=== PATIENT | male | born 1970 | race Caucasian/White ===

== ENCOUNTER 2017-11-26 10:19 | Day surgery (SDC) | payer BC ==
[2017-11-25 08:56] VITALS: BMI 27.6
[~2017-11-26 10:19] MED LIST: LACTATED RINGERS 1,000 ML IV SCH; LIDOCAINE 1% 20 ML VIAL (10MG/ML) FOR IV START INTRADERMA PRN; MIDAZOLAM 2 MG/2 ML VIAL IV PRN
[2017-11-26 11:12] VITALS: TEMP 97.9
[2017-11-26] MEDS ORDERED: LIDOCAINE 1% INJ 10MG/ML (20 ML MDV) ONE (11:58)
[2017-11-26] MEDS ORDERED: PROPOFOL 10 MG/ML 20 ML VIAL IV ONE (11:58)
--- NOTE | 2017-11-26 12:19 | P.PCN ---
Date of Procedure: 11/26/17 Procedure(s) Performed: BRIEF HISTORY: Patient is a 47-year-old pleasant male, scheduled for an elective colonoscopy as a part of value should of intermittent rectal bleeding and prior history of colon polyps. He has strong family history of colon cancer diagnosed in his father and paternal aunt in the early 50s. As colonoscopy was in 2013 and was noted to have a tubular adenoma. PROCEDURE PERFORMED: Colonoscopy. PREOPERATIVE DIAGNOSIS: History of colon polyps/family history of colon Cancer/ intermittent rectal bleeding. IV sedation per Anesthesia. PROCEDURE: After informed consent was obtained, the patient, was brought into the endoscopy unit. IV sedation was administered by Anesthesia under continuous monitoring. Digital rectal examination was normal. Initially the Olympus CF- 160 flexible video colonoscope was then inserted in the rectum, gradually advanced into the cecum without any difficulty. Careful examination was performed as the scope was gradually being withdrawn. Ileocecal valve and the appendiceal orifice were visualized and appeared normal. Prep was excellent. Mucosa of the cecum, ascending colon, transverse colon, descending colon, sigmoid colon, and rectum appeared normal. Retroflexion was performed in the rectum and small internal hemorrhoids were seen. The patient tolerated the procedure well. IMPRESSION: Normal-appearing colon from rectum to cecum with no evidence of colorectal neoplasia. RECOMMENDATIONS: Findings of this examination were discussed with the patient well as his family. He was advised to have a repeat screening colonoscopy in 3 years from now because of the prior history of colon polyps and strong family history of colon cancer.
[2017-11-26 12:57] VITALS: BP 127/86; PULSE 56; RESP 16
== END 2017-11-26 13:09 | disposition home or self-care (01) ==
LOC: ORWHC2ENDO 10:19
PROVIDERS: ATTEND Internal Medicine Gastroenterology
DX: K62.5 Hemorrhage of anus and rectum (principal); K64.8 Other hemorrhoids; Z86.010 Personal history of colon polyps; Z80.0 Family history of malignant neoplasm of digestive organs; Z87.891 Personal history of nicotine dependence
CPT/HCPCS: 45378; J2001; J2704

== ENCOUNTER 2021-06-28 07:58 | Day surgery (SDC) | payer BC ==
[2021-06-25 14:33] VITALS: BMI 28.8
[2021-06-28 08:17] VITALS: RESP 16; TEMP 98
[2021-06-28] MEDS: LACTATED RINGERS 1,000 ML IV SCH ×2 (08:24→09:30)
[2021-06-28] MEDS ORDERED: LIDOCAINE 1% INJ 10MG/ML (20 ML MDV) ONE (09:35)
[2021-06-28] MEDS ORDERED: PROPOFOL 10 MG/ML 20 ML VIAL IV ONE (09:35)
[2021-06-28] MEDS ORDERED: GLYCOPYRROLATE 0.2 MG/ML 2 ML VIAL ONE (09:35)
--- NOTE | 2021-06-28 09:52 | P.PCN ---
Date of Procedure: 06/28/21 Procedure(s) Performed: BRIEF HISTORY: Patient is a 51-year-old pleasant white male scheduled for an elective colonoscopy as a part of evaluation of prior history of colon polyps and family history of colon cancer diagnosed in his father at age 50 and paternal aunt at age 55.. PROCEDURE PERFORMED: Colonoscopy with biopsy. PREOPERATIVE DIAGNOSIS: History of Colon polyps and family history of colon cancer. IV sedation per Anesthesia. PROCEDURE: After informed consent was obtained, the patient, was brought into the endoscopy unit. IV sedation was administered by Anesthesia under continuous monitoring. Digital rectal examination was normal. Initially the Olympus CF-160 flexible video colonoscope was then inserted in the rectum, gradually advanced into the cecum without any difficulty. Careful examination was performed as the scope was gradually being withdrawn. Ileocecal valve and the appendiceal orifice were visualized and appeared normal. Prep was excellent. Mucosa of the cecum, ascending colon, normal. In the transverse colon there was a 5 mm sessile polyp removed by cold biopsy. Rest of the transverse colon, descending colon, sigmoid colon, and rectum appeared normal. Retroflexion was performed in the rectum and no lesions were seen. The patient tolerated the procedure well. IMPRESSION: 5 mm transverse colon polyp status post cold biopsy Rest of the colon appeared normal RECOMMENDATIONS: Findings of this examination were discussed with the patient that his family. Was advised to with the biopsy results and have have a repeat screening colonoscopy in 3 years.
[2021-06-28 10:11] VITALS: BP 122/85; PULSE 65
== END 2021-06-28 10:30 | disposition home or self-care (01) ==
LOC: ORWHC2ENDO 07:58
PROVIDERS: ATTEND Internal Medicine Gastroenterology
DX: Z12.11 Encounter for screening for malignant neoplasm of colon (principal); D12.3 Benign neoplasm of transverse colon; Z86.010 Personal history of colon polyps; Z80.0 Family history of malignant neoplasm of digestive organs; E78.5 Hyperlipidemia, unspecified
CPT/HCPCS: 88305; 45380; J2001; J2704

== ENCOUNTER 2021-10-30 09:06 | Day surgery (SDC) | payer BC ==
[2021-10-29 11:58] VITALS: BMI 29.5
[~2021-10-30 09:06] MED LIST changes: +FAMOTIDINE 20 MG/2 ML VIAL IV PRN; +HYDROmorphone 0.5 MG/0.5 ML SYRINGE IVP PRN; +LIDOCAINE 1% (10MG/ML) FOR IV START INTRADERMA PRN; -LIDOCAINE 1% 20 ML VIAL (10MG/ML) FOR IV START INTRADERMA PRN; -MIDAZOLAM 2 MG/2 ML VIAL IV PRN; +ONDANSETRON 4 MG/2 ML VIAL IVP ONE
[2021-10-30] MEDS ORDERED: MIDAZOLAM 2 MG/2 ML VIAL ONE (12:02)
[2021-10-30] MEDS ORDERED: LIDOCAINE 2% INJ 20 MG/ML (2 ML VIAL) ONE (12:02)
[2021-10-30] MEDS ORDERED: SUCCINYLCHOLINE CHLORIDE 100 MG/5 ML SYR IV ONE (12:02)
[2021-10-30] MEDS ORDERED: PROPOFOL 10 MG/ML 20 ML VIAL IV ONE (12:02)
[2021-10-30] MEDS ORDERED: fentaNYL (PF) 50 MCG/ML 2 ML AMP ONE (12:02)
[2021-10-30] MEDS ORDERED: LIDOCAINE 1%-EPI 1:100,000 20 ML VIAL SQ ONE ×2 (12:22)
[2021-10-30] MEDS ORDERED: BACITRACIN ZINC 500 UNIT/GM OINT 28.4 GM TUBE TOPICAL ONE ×2 (12:40→13:02)
--- NOTE | 2021-10-30 13:14 | P.OP ---
Date of Procedure: 10/30/21 Preoperative Diagnosis: Left forehead lipoma Postoperative Diagnosis: Same Procedure(s) Performed: Excision left forehead lipoma 6.3 cm with complex closure Anesthesia: EVELYNE Surgeon: Bart Beverly Estimated Blood Loss (ml): 3 Pathology: other (Left forehead lesion) Condition: stable Disposition: PACU Indications for Procedure: This is a 51-year-old white female with a long history numerous years of a slowly enlarging left forehead mass. He had computed tomography scan which showed the left forehead mass which was with a lipoma Operative Findings: Large lipoma left forehead deep to the muscular layer down to the periosteum Description of Procedure: The patient was brought in the operative suite and placed in a supine position. Patient underwent induction of general anesthesia with oral endotracheal intubation without difficulty. The patient was prepped and draped in usual aseptic fashion. Percent lidocaine with 1 100,000 epinephrine was infused subcutaneously at the incision site as well as circumferentially around the lesion and this was left to work for 7 minutes vasoconstrictive effect. A transverse linear incision was made in the direction of the relaxed skin tension lines over the mass and carried sharply through skin and subcutaneous tissue and muscular layer. The lesion was readily identified and appeared most consistent with a lipoma. This was then excised from the surrounding tissue grossly entirely down to the periosteum. Hemostasis was noted to be good with electrocautery. Due to the large space and excess skin a complex closure was required with excision of excess skin at the skin margins superiorly and inferiorly and then complex closure was performed with the muscular layer closed with inverted interrupted 3-0 Vicryl suture and the subcutaneous layer closed with inverted interrupted 0 Vicryl suture and the skin closed with running locking 5-0 Prolene suture. Bacitracin ointment and a sterile dressing including a light compression dressing was placed. The patient was then allowed to emerge from general anesthesia having tolerated procedure well was extubated in the operating suite and transferred to postop recovery area in satisfactory condition.
[2021-10-30 13:31] VITALS: RESP 16; TEMP 97.2
[2021-10-30 14:26] VITALS: BP 135/84; PULSE 73
== END 2021-10-30 14:38 | disposition home or self-care (01) ==
LOC: OR 09:06
PROVIDERS: ATTEND Otolaryngology
DX: D17.0 Benign lipomatous neoplasm of skin and subcutaneous tissue of head, face and neck (principal); E78.00 Pure hypercholesterolemia, unspecified; I49.3 Ventricular premature depolarization; K21.9 Gastro-esophageal reflux disease without esophagitis; Z87.891 Personal history of nicotine dependence; Z79.82 Long term (current) use of aspirin; Z88.8 Allergy status to other drugs, medicaments and biological substances; Z98.890 Other specified postprocedural states; Z82.49 Family history of ischemic heart disease and other diseases of the circulatory system; Z80.3 Family history of malignant neoplasm of breast; Z80.0 Family history of malignant neoplasm of digestive organs; Z81.8 Family history of other mental and behavioral disorders; Z83.42 Family history of familial hypercholesterolemia
CPT/HCPCS: 88304; 21014; J2250; J0690; J2405; J3010; J0330; J2704; J2001